=== PATIENT | female | born 1975 | race Asian ===

== ENCOUNTER 2018-02-19 01:44 | Emergency (ER) | payer OTHER ==
[~2018-02-19] VITALS: Ht 157.5 cm; Wt 57.1 kg
[2018-02-19 01:57] VITALS: Ht 157.5 cm; Wt 57.1 kg
[2018-02-19 02:32] LABS: BASOPHIL % 0.3 % (0-2); PLATELET COUNT 258 x10^3mcL (130-400); RED CELL DISTRIBUTION WIDTH 13.6 % (11.5-14.5)
[2018-02-19 02:37] LABS: CALCIUM 8.6 mg/dL (8.5-10.1); CARBON DIOXIDE 25.6 mmol/L (21-32); CREATININE SERUM 1.2 mg/dL (0.6-1.0); POTASSIUM SERUM 3.9 mmol/L (3.5-5.1)
[2018-02-19 02:41] LABS: ALBUMIN 3.8 g/dL (3.4-5.0); BILIRUBIN TOTAL 0.7 mg/dL (0.20-1.00); TOTAL PROTEIN, SERUM 7.8 g/dL (6.4-8.2)
[2018-02-19 04:24] VITALS: BP 130/79
== END 2018-02-19 04:24 | disposition home or self-care (01) ==
LOC: ED 01:44
PROVIDERS: Emergency Medicine
DX: N20.1 Calculus of ureter (principal)
CPT/HCPCS: J1885; J2405; J7030